=== PATIENT | female | born 1995 | race Caucasian/White ===

== ENCOUNTER 2019-02-26 11:50 | Outpatient (REF) | payer MEDICAID, SELFPAY ==
--- NOTE | 2019-02-26 10:30 | PAPFT_PTH ---
PATIENT: JERE LIRA LOC: [facility] U#:[id number] AGE/SX: 23/F ROOM: RE02/26/[address]: Francisca Silva RN : 1995 BED: DIS: 02/26/2019 SPEC #: [id number] RECD: 02/26/19 12:51 STATUS: CELIA REGanesh #: [id number] TIFFANI: 02/26/19 10:[address]: Francisca Silva DEPT: [facility]LY [facility], [facility] Cytology RECD BY: Meli Herndon ENTERED: 02/26/19 12:51 SP TYPE: PAPFT OTHR DR: Valery Rivera Tissues: 1 - CX/ENDOCX FOR PAP SMEARS Procedures: PAP THIN PREP/[facility] Screening Comments: [id number]
[2019-02-26 12:58] LABS: *AMPHETAMINES SCREEN URINE Negative (Negative); *BARBITURATES SCREEN URINE Negative (Negative); *BENZODIAZEPINES SCREEN URINE Negative (Negative); Cannabinoids THC Negative (Negative); Cocaine Screen,Urine Negative (Negative); METHADONE URINE SCREEN Negative (Negative); OPIATES URINE SCREEN Negative (Negative)
[2019-02-26 12:59] LABS: Tricyclic Antidepressants Negative (Negative)
[2019-02-27 14:48] LABS: Chlamydia Result Negative; GC Result Negative; Specimen Description CERVIX
[2019-03-06 02:44] LABS: Buprenorphine Negative; Norbuprenorphine Negative
== END 2019-02-26 12:10 ==
LOC: LBN 11:50
PROVIDERS: PCP Pediatrics; Visit Provider Advanced Practice Midwife
DX: Z34.91 Encounter for supervision of normal pregnancy, unspecified, first trimester (principal); Z11.3 Encounter for screening for infections with a predominantly sexual mode of transmission; Z12.4 Encounter for screening for malignant neoplasm of cervix
CPT/HCPCS: 80307; 87491; 87591; 88142; 87086

== ENCOUNTER 2019-03-26 08:02 | Outpatient (CLI) | payer MEDICAID, SELFPAY ==
[2019-03-26 08:43] LABS: Abs Immature Grans 0.02 k/cumm (0.0-0.09); Absolute Basophil Count 0.02 k/cumm (0.0-0.2); Absolute Eosinophil Count 0.08 k/cumm (0.0-0.7); Absolute Monocyte Count 0.45 k/cumm (0.11-0.7); Absolute Neutrophil Count 6.16 k/cumm (1.2-6.7); Basophils % 0.2; HCT 36.9 % (36.0-46.0); HGB 13.1 g/dL (12.0-15.5); Immature Grans % 0.2; Lymphocytes % 19.2; Mean Corp. HGB Concentration 35.5 g/dL (32.0-36.0); Mean Corpuscular Hemoglobin 30.5 pg (27.0-33.0); Mean Corpuscular Volume 85.8 fL (80-95); Mean Platelet Volume 9.4 fL (8.0-11.0); Monocytes % 5.4; Platelet Count 245 x1000/uL (130-400); RBC Distribution Width 13.1 % (11.7-14.6); White Blood Cell Count 8.33 k/cumm (4.4-10.8)
[2019-03-26 09:38] LABS: TSH (W/Ref FT4) 0.52 uIU/mL (0.36-3.74)
[2019-03-26 09:51] LABS: Kit/Specimen SENT
[2019-03-27 10:43] LABS: Hepatitis B Surface Ag Negative (NEGAT)
[2019-03-27 10:53] LABS: HIV-1/2 Ag & Ab Screen Negative (NEGAT)
[2019-03-27 10:59] LABS: Varicella IgG Antibody Positive
[2019-03-27 11:01] LABS: Hepatitis C Ab w Rflx HCV PCR Negative (NEGAT)
[2019-03-27 13:15] LABS: Rubella IgG Ab (UVM) Positive
[2019-03-27 16:16] LABS: Syphilis Total Ab w/Reflex Nonreactive (Nonreactive)
[2019-04-02 05:58] LABS: Result Summary NEGATIVE; Specimen WB Whole Blood
== END 2019-03-26 08:22 ==
PROVIDERS: Advanced Practice Midwife; PCP Pediatrics; Visit Provider Advanced Practice Midwife
DX: Z34.90 Encounter for supervision of normal pregnancy, unspecified, unspecified trimester (principal); Z11.59 Encounter for screening for other viral diseases; Z11.4 Encounter for screening for human immunodeficiency virus [HIV]; Z01.84 Encounter for antibody response examination; Z36.89 Encounter for other specified antenatal screening
CPT/HCPCS: 36415; 86787; 86803; 86850; 86900; 86901; 87340; 87389; 81220; 84443; 85025; 86762; 86780

== ENCOUNTER 2019-04-23 00:36 | Outpatient (CLI) | payer MEDICAID, SELFPAY ==
--- NOTE | 2019-04-23 11:58 | DI.US_ITS ---
EXAM: US OB 2-3 TRIMESTER CLINICAL HISTORY: routine pnc, Z34.90, survey TECHNIQUE: Ultrasound performed using standard protocol. COMPARISON: No exams were available for comparison FINDINGS: A viable becker is noted in a varied position. No anomaly was observed and the cardiac rate is 160 beats per minute. Note is made of what appears to represent a 5 mm choroid plexus cyst. The placenta is posterior. There is a well-circumscribed region of sonolucency on the anterior border o f the placenta which measures 2.66 cm x 2.4 x 1.4 cm which most likely represents a chorioangioma. measurements are consistent with a gestational age 18 weeks and 3 days. IMPRESSION: An 18 week 3 day fetus is identified with a cardiac rate of 160 beats per minute. 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 Please see the ultrasound worksheet for the complete res ults of this examination.
== END 2019-04-23 00:56 ==
PROVIDERS: PCP Pediatrics; Visit Provider Advanced Practice Midwife
DX: O28.3 Abnormal ultrasonic finding on antenatal screening of mother (principal)
CPT/HCPCS: 76805

== ENCOUNTER 2019-04-23 14:38 | Outpatient (CLI) | payer MEDICAID, SELFPAY ==
[2019-04-25 15:12] LABS: AFP 42.1 ng/mL; Cigarette smoking status non-smoker; GA used in risk estimate Scan estimate; IVF Pregnancy No; Initial or repeat testing Initial testing; Insulin dependent diabetes No; Maternal Weight 172 lbs; Number of Fetuses 1; Physician Phone Number 802-748-7300; Prev Pregnancy w/NTD No; RECOMMENDED FOLLOW UP None.; Results Summary Normal risk
== END 2019-04-23 14:58 ==
PROVIDERS: PCP Pediatrics; Visit Provider Advanced Practice Midwife
DX: Z34.92 Encounter for supervision of normal pregnancy, unspecified, second trimester (principal); Z36.89 Encounter for other specified antenatal screening
CPT/HCPCS: 36415; 82105

== ENCOUNTER 2019-06-18 12:00 | Outpatient (REF) | payer MEDICAID, SELFPAY ==
[2019-06-19 12:02] LABS: HSV 1 DNA Result Negative (Negative); HSV 2 DNA Result Negative (Negative)
== END 2019-06-18 12:20 ==
LOC: LBN 12:00
PROVIDERS: PCP Pediatrics; Visit Provider Advanced Practice Midwife
DX: L98.9 Disorder of the skin and subcutaneous tissue, unspecified (principal); Z11.59 Encounter for screening for other viral diseases
CPT/HCPCS: 87529

== ENCOUNTER 2019-07-04 02:45 | Outpatient (CLI) | payer MEDICAID, SELFPAY ==
--- NOTE | 2019-07-04 08:32 | DI.US_ITS ---
EXAM: US OB F/U FACIAL/LVOT/RVOT CLINICAL HISTORY: f/up eval choroid plexus cyst choriohemangioma, Z34.90 TECHNIQUE: Ultrasound performed using standard protocol. COMPARISON: US OB 2-3 TRIMESTER from 04/23/2019 FINDINGS: Ob ultrasound was performed utilizing limited protocol to follow findings noted on prior study of . Placenta is posterior. Previously noted low-attenuation focus of the placenta is smaller and less ro unded on the current examination, measuring about 20 x 11 millimeters in diameter as compared to abou t 26 millimeters in diameter on the prior study. This is indeterminate for venous Resendiz versus chorio angioma. The previous examination also showed a choroid plexus cyst. On today's examination, no choroid plexu s cyst is identified.
[2019-07-04 10:38] LABS: Glucose,1 Hr (Glucola) 173 mg/dL (80-140)
== END 2019-07-04 03:05 ==
PROVIDERS: PCP Pediatrics; Visit Provider Advanced Practice Midwife
DX: Z34.93 Encounter for supervision of normal pregnancy, unspecified, third trimester (principal); Z36.2 Encounter for other antenatal screening follow-up
CPT/HCPCS: 36415; 76815; 82950

== ENCOUNTER 2019-07-04 10:57 | Outpatient (CLI) | payer MEDICAID, SELFPAY ==
[2019-07-04 11:12] LABS: HCT 30.3 % (36.0-46.0); HGB 10.2 g/dL (12.0-15.5); Mean Corp. HGB Concentration 33.7 g/dL (32.0-36.0); Mean Corpuscular Hemoglobin 29.3 pg (27.0-33.0); Mean Corpuscular Volume 87.1 fL (80-95); Mean Platelet Volume 8.5 fL (8.0-11.0); Platelet Count 259 x1000/uL (130-400); RBC 3.48 m/cumm (4.00-5.20); RBC Distribution Width 13.2 % (11.7-14.6)
== END 2019-07-04 11:17 ==
PROVIDERS: PCP Pediatrics; Visit Provider Advanced Practice Midwife
DX: Z34.93 Encounter for supervision of normal pregnancy, unspecified, third trimester (principal); O26.899 Other specified pregnancy related conditions, unspecified trimester; Z67.91 Unspecified blood type, Rh negative
CPT/HCPCS: 36415; 85027; 86850

== ENCOUNTER 2019-07-08 07:12 | Outpatient (CLI) | payer MEDICAID, SELFPAY ==
[2019-07-08 09:53] LABS: Glucose 1 Hour 190 mg/dL
[2019-07-08 11:25] LABS: Glucose 3 Hour 103 mg/dL
== END 2019-07-08 07:32 ==
PROVIDERS: PCP Pediatrics; Visit Provider Advanced Practice Midwife
DX: Z34.93 Encounter for supervision of normal pregnancy, unspecified, third trimester (principal)
CPT/HCPCS: 36410; 90384; 82951

== ENCOUNTER 2019-07-16 01:08 | Outpatient (CLI) | payer MEDICAID, SELFPAY ==
--- NOTE | 2019-07-16 09:52 | DIABASSESS_ITS ---
DESCRIPTION/ASSESSMENT: Khalida Vallejo presents for diabetes consult for newly diagnosed gestational diabetes. She reports a strong family history of type 1 diabetes and type 2 in distant relatives. 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 First with nausea and weight loss much of and has had about a 7 pound weight gain overall. She states she has anemia as well taking Flinstones, vitamin D and iron which she feels constipates her. She is attempting to eat less than 20 grams carbohydrate at a meal. She is snacking mostly on non-carbohydrate foods. Today she had 1/2 wheat bagel thin (14 grams), peanut butter and cheese stick. Lunch yesterday egg salad sandwich on 1 slice thin bread, last evening she had tacos without the tortilla shell; snacked on cheese stick and pepperoni chips. She is eating very few carbohydrates. She states she is hungry a lot of the time. She is tracking her food on [employer] janis. She and her mother have started increasing their physical activity. Khalida has been testing her blood sugars when she feels funky using her brother's glucometer. States she was low once with symptoms, but could not recall the blood sugar. INTERVENTION: Reviewed risks of hyperglycemia in and general guidelines. Reviewed food guide focused on limiting carbohydrates to 30 grams in morning, less than 45 at each meal and 15 or less for snacks. Monitored her blood sugar about 2 hours after breakfast at 105mg/dl. Reviewed monitoring guidelines and she voices understanding. Reviewed impact of physical activity on blood sugars and advised to walk 5-10 minutes if there is a pattern of elevated blood sugars between eating and monitoring blood sugar. ACTION PLAN: She will follow carbohydrate guidelines and monitor blood sugars. She will check to see if glucometer is available this evening and in the morning. She will call with any questions. Notified Midwives of need for glucometer prescription. Individual DSME/T __1__ units billed TIME IN: 0947 OUT: 1030 No DM group education series being offered at this time.
== END 2019-07-16 01:28 ==
PROVIDERS: PCP Pediatrics; Visit Provider Dietitian, Registered
DX: O24.419 Gestational diabetes mellitus in pregnancy, unspecified control (principal); Z71.3 Dietary counseling and surveillance; Z83.3 Family history of diabetes mellitus
CPT/HCPCS: G0108